=== PATIENT | female | born 1980 | race Caucasian/White ===

== ENCOUNTER 2018-10-02 19:11 | Emergency (ER) | payer OTHER ==
[~2018-10-02] VITALS: Ht 162.6 cm; Wt 90.3 kg
[2018-10-02 19:18] VITALS: BP 124/82
--- NOTE | 2018-10-02 19:23 | NUR ---
PT TAKEN TO BED 9
--- NOTE | 2018-10-02 19:29 | NUR ---
PT TO ED WITH GENERALIZED HEADACHE AND BIALTERAL JAW PAIN X1 HR WITH NO RELIEF FROM IBUPROFEN AT HOME. PT DENIES ANY TRAUMA OR INJURY TO HEAD/FACE. PT IS ALERT AND ORIENTED TO NAME, BIRTHDAY, PLACE, EVENT. NO NEURO DEFICTS. PT PLACED INTO BED, PENDING MD PETTY. PMH--DENIES RX--DENIES
--- NOTE | 2018-10-02 20:21 | NUR ---
Dr. Layne evaluating patient at bedside.
[2018-10-02] MEDS ORDERED: KETOROLAC 60 MG/2 ML VIAL IM ONE (20:35)
--- NOTE | 2018-10-02 21:06 | NUR ---
Patient discharged with v/s stable. Written and verbal after care instructions given and explained. Patient alert, oriented and verbalized understanding of instructions. Ambulatory with steady gait. All questions addressed prior to discharge. ID band removed. Patient advised to follow up with PMD. Rx of MOTRIN, TRAMADOL given. Patient educated on indication of medication including possible reaction and side effects. Opportunity to ask questions provided and answered.
[2018-10-02 21:08] VITALS: BP 119/88
== END 2018-10-02 20:45 | disposition home or self-care (01) ==
LOC: MED 19:11
DX: G44.209 Tension-type headache, unspecified, not intractable (principal); R68.84 Jaw pain
CPT/HCPCS: 81002; 81025; 96372; 99283; J1885